=== PATIENT | male | born 1985 | race Caucasian/White ===

== ENCOUNTER 2016-06-21 13:32 | Emergency (ER) | payer SELFPAY ==
[~2016-06-21 13:32] MED LIST: ADVIL 200MG TA200 MG PO; CLEOCIN HC150 MG/CAP PO; CLINDAMYCIN 300MG PO; GOOD NEIGHBOR200 M3 PO; MELOXICAM7.5 MG PO; METHOCARBAMOL PO; NAPROXEN SOD.550 MG PO; NO HOME MEDICATIONS; NORCO 325 MG-51 TA1 PO; ULTRAM 50MG TAB50 MG PO; [UNRECOGNIZED DRUG - OTHER] PO
[2016-06-21] MEDS ORDERED: CLEOCIN HC150 MG/CAP PO (13:44)
== END 2016-06-21 14:10 | disposition home or self-care (01) ==
LOC: ED 13:32
DX: S02.5XXA Fracture of tooth (traumatic), initial encounter for closed fracture (principal); F17.210 Nicotine dependence, cigarettes, uncomplicated; Y99.8 Other external cause status

== ENCOUNTER 2016-09-16 21:03 | Emergency (ER) | payer MEDICAID ==
[2016-09-16 22:33] VITALS: BP 114/70
== END 2016-09-16 22:33 | disposition home or self-care (01) ==
LOC: ED 21:03
DX: S20.212A Contusion of left front wall of thorax, initial encounter (principal); W22.8XXA Striking against or struck by other objects, initial encounter; Y92.008 Other place in unspecified non-institutional (private) residence as the place of occurrence of the external cause
CPT/HCPCS: J1885

== ENCOUNTER 2016-11-16 17:10 | Emergency (ER) | payer MEDICAID ==
[~2016-11-16] VITALS: Ht 160 cm; Wt 84.1 kg
[2016-11-16] MEDS ORDERED: ERYTHROMYCIN B500 MG PO (17:49)
[2016-11-16] MEDS ORDERED: NORCO 325 MG-51 TA1 PO (17:49)
[2016-11-16 17:52] VITALS: BP 109/75
== END 2016-11-16 17:58 | disposition home or self-care (01) ==
LOC: ED 17:10
DX: K08.89 Other specified disorders of teeth and supporting structures (principal); F17.210 Nicotine dependence, cigarettes, uncomplicated; K03.81 Cracked tooth

== ENCOUNTER 2017-04-27 01:58 | Emergency (ER) | payer MEDICAID ==
[~2017-04-27] VITALS: Ht 162.6 cm; Wt 80.9 kg
[~2017-04-27 01:58] MED LIST changes: +ERYTHROMYCIN B500 MG PO
[2017-04-27] MEDS ORDERED: CHANTIX 1MG1 MG PO (02:09)
[2017-04-27] MEDS ORDERED: SUNMARK OMEPRAZ20 MG PO (02:10)
[2017-04-27] MEDS ORDERED: CEPHALEXIN500 M1 PO (02:28)
[2017-04-27] MEDS ORDERED: NORCO 325 MG-51 TA1 PO (02:28)
[2017-04-27 02:38] VITALS: BP 112/78
== END 2017-04-27 02:38 | disposition home or self-care (01) ==
LOC: ED 01:58
DX: T81.4XXA Infection following a procedure, initial encounter (principal); F17.200 Nicotine dependence, unspecified, uncomplicated; Z88.0 Allergy status to penicillin

== ENCOUNTER 2017-09-29 21:09 | Emergency (ER) | payer MEDICAID ==
[~2017-09-29 21:09] MED LIST changes: +CEPHALEXIN500 M1 PO; +CHANTIX 1MG1 MG PO; +SUNMARK OMEPRAZ20 MG PO
[2017-09-29] MEDS ORDERED: NORCO 325 MG-51 TA1 PO (21:27)
[2017-09-29] MEDS ORDERED: BACTRIM DS TAB1 EACH PO (21:27)
[2017-09-29 21:36] VITALS: BP 105/64
== END 2017-09-29 21:36 | disposition home or self-care (01) ==
LOC: ED 21:09
DX: T81.4XXA Infection following a procedure, initial encounter (principal); L03.311 Cellulitis of abdominal wall; F17.200 Nicotine dependence, unspecified, uncomplicated

== ENCOUNTER 2017-12-29 23:23 | Emergency (ER) | payer MEDICAID ==
[~2017-12-29] VITALS: Ht 162.6 cm; Wt 79.5 kg
[~2017-12-29 23:23] MED LIST changes: +BACTRIM DS TAB1 EACH PO
[2017-12-30 00:01] VITALS: BP 115/67
== END 2017-12-30 00:01 | disposition home or self-care (01) ==
LOC: ED 23:23
DX: S00.512A Abrasion of oral cavity, initial encounter (principal); W50.0XXA Accidental hit or strike by another person, initial encounter; Y92.009 Unspecified place in unspecified non-institutional (private) residence as the place of occurrence of the external cause; F17.210 Nicotine dependence, cigarettes, uncomplicated

== ENCOUNTER 2018-01-22 02:50 | Emergency (ER) | payer MEDICAID ==
[2018-01-22 03:40] LABS: EOS # 0.1 (0.04-0.40); HEMATOCRIT 44.7 % (42.0-52.0); HEMOGLOBIN 15.7 g/dL (13.5-18.0); LYMPH# 1.6 (1.50-4.00); MEAN CELL VOLUME 89 fl (78-100); MEAN CORPUSCULAR HEMOGLOBIN 31 pg (27-31); MEAN CORPUSCULAR HGB CONC 35 g/dL (33-37); MEAN PLATELET VOLUME 9.4 fl (7.4-10.4); MONO # 0.8 (0.20-0.80); NEU # 4.5 (1.40-6.50); PLATELET COUNT 182 K/mm3 (130-400); RED CELL DISTRIBUTION WIDTH 12.6 % (11.5-14.5)
[2018-01-22 03:49] LABS: ALBUMIN 4.5 g/dL (3.5-5.0); CALCIUM 8.6 mg/dL (8.4-10.2); POTASSIUM 3.4 mmol/L (3.6-5.0); TOTAL BILIRUBIN 0.5 mg/dL (0.2-1.3)
[2018-01-22 04:21] LABS: URINE APPEARANCE CLEAR; URINE BILIRUBIN NEGATIVE (NEGATIVE); URINE BLOOD NEGATIVE (NEGATIVE); URINE COLOR YELLOW; URINE GLUCOSE NEGATIVE (NEGATIVE); URINE KETONE NEGATIVE (NEGATIVE); URINE LEUKOCYTE ESTERASE NEGATIVE (NEGATIVE); URINE NITRATE NEGATIVE (NEGATIVE); URINE PROTEIN(semi-quant) NEGATIVE (NEGATIVE); URINE UROBILINOGEN NORMAL (NORMAL); URINE WBC 0-1 /hpf (0-3)
[2018-01-22 09:21] VITALS: BP 107/67
== END 2018-01-22 09:21 | disposition home or self-care (01) ==
LOC: ED 02:50
PROVIDERS: Family Medicine
DX: F10.120 Alcohol abuse with intoxication, uncomplicated (principal); Y90.4 Blood alcohol level of 80-99 mg/100 ml; K21.9 Gastro-esophageal reflux disease without esophagitis
CPT/HCPCS: J3411; J3490; J7030

== ENCOUNTER 2018-01-27 20:15 | Emergency (ER) | payer MEDICAID ==
[2018-01-27] MEDS ORDERED: PROAIR HFA0.09 MG/AC IH (20:28)
[2018-01-27 21:14] LABS: EOS # 0.2 (0.04-0.40); EOS % 1.7 % (0.0-4.0); HEMATOCRIT 44.5 % (42.0-52.0); HEMOGLOBIN 15.2 g/dL (13.5-18.0); LYMPH# 3.5 (1.50-4.00); MEAN CELL VOLUME 91 fl (78-100); MEAN CORPUSCULAR HEMOGLOBIN 31 pg (27-31); MEAN CORPUSCULAR HGB CONC 34 g/dL (33-37); MEAN PLATELET VOLUME 9.2 fl (7.4-10.4); MONO # 0.5 (0.20-0.80); PLATELET COUNT 179 K/mm3 (130-400); RED BLOOD COUNT 4.89 M/mm3 (4.20-5.60); RED CELL DISTRIBUTION WIDTH 12.4 % (11.5-14.5); WHITE BLOOD COUNT 9.3 K/mm3 (4.8-10.8)
[2018-01-27] MEDS ORDERED: PREDNISONE10 MG PO (22:12)
[2018-01-27] MEDS ORDERED: ZITHROMAX 250M250 MG PO (22:12)
[2018-01-27] MEDS ORDERED: TUSSIONEX PENN115 ML PO (22:13)
[2018-01-27] MEDS ORDERED: TESSALON PERLE100 M1 PO (22:13)
[2018-01-27 22:24] VITALS: BP 110/60
== END 2018-01-27 22:24 | disposition home or self-care (01) ==
LOC: ED 20:15
PROVIDERS: Nurse Practitioner Family
DX: J20.9 Acute bronchitis, unspecified (principal); Z87.891 Personal history of nicotine dependence
CPT/HCPCS: J2930

== ENCOUNTER 2018-02-04 17:07 | Emergency (ER) | payer MEDICAID ==
[~2018-02-04] VITALS: Ht 162.6 cm; Wt 79.1 kg
[~2018-02-04 17:07] MED LIST changes: +PREDNISONE10 MG PO; +PROAIR HFA0.09 MG/AC IH; +TESSALON PERLE100 M1 PO; +TUSSIONEX PENN115 ML PO; +ZITHROMAX 250M250 MG PO
[2018-02-04 18:12] LABS: BASO # 0.1 (0.02-0.10); EOS # 0.2 (0.04-0.40); EOS % 1.9 % (0.0-4.0); HEMATOCRIT 45.8 % (42.0-52.0); HEMOGLOBIN 15.3 g/dL (13.5-18.0); LYMPH# 4.3 (1.50-4.00); MEAN CELL VOLUME 92 fl (78-100); MEAN CORPUSCULAR HEMOGLOBIN 31 pg (27-31); MEAN CORPUSCULAR HGB CONC 33 g/dL (33-37); MEAN PLATELET VOLUME 8.9 fl (7.4-10.4); MONO # 1.1 (0.20-0.80); NEU # 4.8 (1.40-6.50); PLATELET COUNT 254 K/mm3 (130-400); RED BLOOD COUNT 4.99 M/mm3 (4.20-5.60); RED CELL DISTRIBUTION WIDTH 12.9 % (11.5-14.5); WHITE BLOOD COUNT 10.5 K/mm3 (4.8-10.8)
[2018-02-04] MEDS ORDERED: GOOD NEIGHBOR P20 M1 PO (19:04)
[2018-02-04] MEDS ORDERED: ALBUTEROL2.5 MG/3 M IH (19:04)
[2018-02-04] MEDS ORDERED: PULMICORT0.5 MG/2 M IH (19:04)
[2018-02-04 19:55] VITALS: BP 120/69
== END 2018-02-04 19:55 | disposition home or self-care (01) ==
LOC: ED 17:07
PROVIDERS: Family Medicine
DX: R05 Cough (principal); K21.9 Gastro-esophageal reflux disease without esophagitis; Z87.891 Personal history of nicotine dependence; R09.81 Nasal congestion

== ENCOUNTER 2018-03-20 20:41 | Emergency (ER) | payer MEDICAID ==
[~2018-03-20] VITALS: Ht 162.6 cm; Wt 80.0 kg
[~2018-03-20 20:41] MED LIST changes: +ALBUTEROL2.5 MG/3 M IH; +GOOD NEIGHBOR P20 M1 PO; +PULMICORT0.5 MG/2 M IH
[2018-03-20 21:44] VITALS: BP 110/63
== END 2018-03-20 21:45 | disposition home or self-care (01) ==
LOC: ED 20:41
DX: S93.402A Sprain of unspecified ligament of left ankle, initial encounter (principal); X58.XXXA Exposure to other specified factors, initial encounter; Y93.01 Activity, walking, marching and hiking; Y92.9 Unspecified place or not applicable; Y99.9 Unspecified external cause status

== ENCOUNTER → 2021-01-08 | Outpatient (CLI) | payer MEDICAID | LOC: LAB 11:29 | DX: R07.9 Chest pain, unspecified (principal) ==